=== PATIENT | male | born 1930 | race Caucasian/White ===

== ENCOUNTER 2016-05-31 13:58 | Emergency (ER) | payer MEDICARE ==
[~2016-05-31] VITALS: Ht 172.7 cm; Wt 85.0 kg
[~2016-05-31 13:58] MED LIST: AMLODIPINE5 MG PO; AMOXICILLIN500 MG PO; ASPIRIN81 MG PO; BL ASPIRIN325 MG PO; CARVEDILOL25 MG PO; CEFTIN250 MG PO; CEFTIN500 MG PO; CEPHALEXIN500 MG PO; CIPRO500 MG OR; CLOPIDOGREL75 MG PO; CONSTULOSE OR; CORDARONE/200 MG/TAB PO; COUMADIN3 MG PO; COUMADIN4 MG PO; CRESTOR10 MG OR; CRESTOR5 MG OR; CRESTOR5 MG PO; CYCLOBENZAPR10 MG PO; DEBROX6.5 % AU; DIDN'T BRING MEDS; DILTIAZEM CD120 MG PO; DIVALPROEX SOD250 MG PO; DIVALPROEX250 M1 OR; FLEET ENEMA RE; FLOMAX0.4 M1 OR; ISORDIL40 MG OR; ISOSORB DIN30 MG OR; KAYEXALATE15 GM/60 M PO; KEFLEX500 M1 PO; KEFLEX500 MG PO; LASIX 20 MG TAB20 MG PO; LEVOTHYROXIN100 MC1 PO; LEVOTHYROXIN125 MCG PO; LEVOTHYROXIN25 MC1 PO; LISINOPRIL10 MG PO; LISINOPRIL20 MG PO; LOPRESSOR 550 MG/TAB PO; LOTREL1 CA4 OR; MAG CITRATE PO; METO50TA52 PO; METOPROL TAR100 MG PO; METOPROL TAR25 MG PO; METOPROLOL100 M1 OR; NITROGLYCER0.4 MG SL; PENTOXIFYLLI400 MG PO; PLAVIX75 MG OR; PLAVIX75 MG PO; PLETAL100 MG OR; PREDNISONE10 MG PO; PROZAC10 MG OR; RESTORIL15 MG PO; RESTORIL30 MG OR; ROCEPHIN 1 GM1 GM IM; SANTYL250 MG/GM EX; SODIUM BICARBI650 MG PO; SYNTHROID125 MCG PO; TEMAZEPAM15 MG PO; TOPROL XL100 MG OR; TRAMADOL HCL50 MG PO; TRAZODONE50 MG PO; TRENTAL400 MG OR; ULTRAM50 M1 PO; WARFARIN2.5 MG PO; WARFARIN5 MG PO; [UNRECOGNIZED DRUG - OTHER] TOP
[2016-05-31 15:41] LABS: HEMATOCRIT 43.6 % (39.0-50.0); HEMOGLOBIN 13.8 g/dl (14.0-18.0); IMMATURE GRANULOCYTES 1.6 % (0.0-1.0); MEAN CELL VOLUME 80.7 fL CALC (80.0-100.0); MEAN CORPUSCULAR HGB 25.6 pG CALC (26.0-32.0); MEAN CORPUSCULAR HGB CONC 31.7 g/L CALC (32.0-36.0); NEUT# 11.12 thou/uL (1.82-7.42); RED BLOOD COUNT 5.4 mill/uL (4.70-6.10); RED CELL DISTRI WIDTH 15.5 % (11.5-15.5)
[2016-05-31 16:01] LABS: ALBUMIN 4.5 g/dL (3.2-5.0); ALKALINE PHOSPHATASE 80 u/l (38-126); ANION GAP 21 (6-22 (CALC)); BILIRUBIN, TOTAL 0.4 mg/dL (0.0-1.4); BUN 42 mg/dL (8-23); BUN/CREATININE RATIO 13 (12-20 (CALC)); CALCIUM 8.8 mg/dL (8.4-10.2); CARBON DIOXIDE 20 mmol/l (22-30); CHLORIDE 108 mmol/l (95-108); CREATININE 3.3 mg/dL (0.7-1.3); GFR 18 ML/MIN (>=60 (CALC)); GFR FOR AFR.AMER. 22 ML/MIN (>=60 (CALC)); GLUCOSE 80 mg/dL (82-115); POTASSIUM 4.7 mmol/l (3.5-5.1); SGOT/AST 16 u/l (19-48); SGPT/ALT 19 u/l (11-66); SODIUM 143 mmol/l (137-146); TOTAL PROTEIN 8.3 g/dL (6.3-8.2)
[2016-05-31 16:13] LABS: MYOGLOBIN 74 ng/mL (0 - 121)
[2016-05-31 17:20] VITALS: BP 195/87
[2016-05-31] MEDS ORDERED: MEDDOSEPAK PO (17:23)
[2016-05-31] MEDS ORDERED: ZITHROMAX250 MG PO (17:23)
== END 2016-05-31 17:28 | disposition left against medical advice (07) ==
LOC: ED 13:58
PROVIDERS: Emergency Medicine
DX: S09.90XA Unspecified injury of head, initial encounter (principal); Z91.19 Patient's noncompliance with other medical treatment and regimen; S16.1XXA Strain of muscle, fascia and tendon at neck level, initial encounter; R09.02 Hypoxemia; J44.9 Chronic obstructive pulmonary disease, unspecified; N28.9 Disorder of kidney and ureter, unspecified; I10 Essential (primary) hypertension; Z85.89 Personal history of malignant neoplasm of other organs and systems; F17.210 Nicotine dependence, cigarettes, uncomplicated; V49.59XA Passenger injured in collision with other motor vehicles in traffic accident, initial encounter; Y92.410 Unspecified street and highway as the place of occurrence of the external cause

== ENCOUNTER 2016-08-23 11:47 | Inpatient (IN) | payer MEDICARE ==
[2016-08-23] VITALS (10 sets, daily range): BP systolic 116–149; BP diastolic 65–90
[~2016-08-23] VITALS: Ht 172.7 cm; Wt 73.0 kg
[~2016-08-23 11:47] MED LIST changes: +MEDDOSEPAK PO; +ZITHROMAX250 MG PO
[2016-08-23 12:32] LABS: HEMATOCRIT 46.9 % (39.0-50.0); MEAN CELL VOLUME 80.2 fL CALC (80.0-100.0); MEAN CORPUSCULAR HGB 25.6 pG CALC (26.0-32.0); NEUT# 12.07 thou/uL (1.82-7.42); RED BLOOD COUNT 5.85 mill/uL (4.70-6.10); RED CELL DISTRI WIDTH 16.1 % (11.5-15.5)
[2016-08-23 12:45] LABS: ALBUMIN 4.6 g/dL (3.2-5.0); ALKALINE PHOSPHATASE 77 u/l (38-126); ANION GAP 20 (6-22 (CALC)); BILIRUBIN, TOTAL 0.6 mg/dL (0.0-1.4); BUN 44 mg/dL (8-23); BUN/CREATININE RATIO 15 (12-20 (CALC)); CARBON DIOXIDE 17 mmol/l (22-30); CHLORIDE 114 mmol/l (95-108); GFR 20 ML/MIN (>=60 (CALC)); GFR FOR AFR.AMER. 24 ML/MIN (>=60 (CALC)); GLUCOSE 86 mg/dL (82-115); POTASSIUM 4.6 mmol/l (3.5-5.1); SGOT/AST 24 u/l (19-48); SGPT/ALT 28 u/l (11-66); SODIUM 146 mmol/l (137-146); TOTAL PROTEIN 8.3 g/dL (6.3-8.2)
[2016-08-23 12:57] LABS: MYOGLOBIN 77 ng/mL (0 - 121)
[2016-08-23 14:15] LABS: URINE BILIRUBIN - DIPSTICK NEGATIVE (NEGATIVE); URINE BLOOD DIPSTICK TRACE-LYSED (NEGATIVE); URINE CLARITY CLEAR; URINE COLOR YELLOW; URINE GLUCOSE - DIPSTICK NEGATIVE (NEGATIVE); URINE KETONE NEGATIVE (NEGATIVE); URINE LEUK ESTERASE NEGATIVE (NEGATIVE); URINE NITRITE - DIPSTICK NEGATIVE (Negative); URINE PH 5.5 (4.5-8.0); URINE PROTEIN - DIPSTICK 30 mg/dL (NEG-TRACE); URINE SPECIFIC GRAVITY >=1.030; URINE UROBILINOGEN - DIPSTICK 0.2 E.U./dL (0.2)
[2016-08-23 14:24] LABS: URINE RBC 0-2 RBC/hpf (0-5); URINE WBC 0-2 WBC/hpf (0-5)
[2016-08-24] VITALS (18 sets, daily range): BP systolic 100–146; BP diastolic 61–97
[2016-08-24 08:00] LABS: HEMATOCRIT 46.4 % (39.0-50.0); HEMOGLOBIN 14.4 g/dl (14.0-18.0); IMMATURE GRANULOCYTES 0.7 % (0.0-1.0); MEAN CELL VOLUME 82.6 fL CALC (80.0-100.0); MEAN CORPUSCULAR HGB 25.6 pG CALC (26.0-32.0); NEUT# 8.29 thou/uL (1.82-7.42); RED BLOOD COUNT 5.62 mill/uL (4.70-6.10); RED CELL DISTRI WIDTH 16.3 % (11.5-15.5)
[2016-08-24 09:20] LABS: CALCIUM 8.6 mg/dL (8.4-10.2); CHOLESTEROL HDL RATIO 4.9 (<4.4 (CALC)); CREATININE 2.8 mg/dL (0.7-1.3); POTASSIUM 4.7 mmol/l (3.5-5.1)
[2016-08-25 00:09] VITALS: BP 110/58
[2016-08-25 04:05] VITALS: BP 138/89
[2016-08-25 05:00] LABS: HEMATOCRIT 40.6 % (39.0-50.0); IMMATURE GRANULOCYTES 0.8 % (0.0-1.0); MEAN CELL VOLUME 81.2 fL CALC (80.0-100.0); NEUT# 8.81 thou/uL (1.82-7.42); RED CELL DISTRI WIDTH 15.8 % (11.5-15.5)
[2016-08-25 05:06] LABS: ALBUMIN 3.6 g/dL (3.2-5.0); CALCIUM 7.9 mg/dL (8.4-10.2); CREATININE 2.7 mg/dL (0.7-1.3); POTASSIUM 4.4 mmol/l (3.5-5.1)
[2016-08-25 07:19] VITALS: BP 109/79
[2016-08-25 07:30] VITALS: BP 109/79
[2016-08-25] MEDS ORDERED: SODIUM BICARBI650 MG PO (07:57)
[2016-08-25] MEDS ORDERED: PREDNISONE10 MG PO (07:57)
[2016-08-25] MEDS ORDERED: CARDIZEM CD240 MG PO (07:57)
[2016-08-25] MEDS ORDERED: GUAIFENESI100 MG/51 PO (07:57)
[2016-08-25] MEDS ORDERED: PEPCID20 MG PO (07:57)
[2016-08-25] MEDS ORDERED: PRAVASTATIN SOD20 MG PO (07:57)
[2016-08-25] MEDS ORDERED: IPRATROPIU0.5 MG/3 M IN (07:57)
== END 2016-08-25 09:10 | disposition home or self-care (01) | DRG 309 ==
LOC: ENPENDDIS → ED 11:47 → ED-I 13:25 → ED 14:04 → ICU 14:05
PROVIDERS: Emergency Medicine; Internal Medicine Nephrology; ADMIT Internal Medicine; ATTEND Internal Medicine
DX: I48.0 Paroxysmal atrial fibrillation (principal); N18.4 Chronic kidney disease, stage 4 (severe); E87.2 Acidosis; E87.0 Hyperosmolality and hypernatremia; Z93.0 Tracheostomy status; J44.1 Chronic obstructive pulmonary disease with (acute) exacerbation; I13.10 Hypertensive heart and chronic kidney disease without heart failure, with stage 1 through stage 4 chronic kidney disease, or unspecified chronic kidney disease; I25.10 Atherosclerotic heart disease of native coronary artery without angina pectoris; E89.0 Postprocedural hypothyroidism; E78.5 Hyperlipidemia, unspecified; F17.210 Nicotine dependence, cigarettes, uncomplicated; I70.213 Atherosclerosis of native arteries of extremities with intermittent claudication, bilateral legs; I71.4 Abdominal aortic aneurysm, without rupture; F41.9 Anxiety disorder, unspecified; G47.00 Insomnia, unspecified; H91.93 Unspecified hearing loss, bilateral; Z85.21 Personal history of malignant neoplasm of larynx; Z86.73 Personal history of transient ischemic attack (TIA), and cerebral infarction without residual deficits; Z90.02 Acquired absence of larynx; Z99.81 Dependence on supplemental oxygen; Z91.14 Patient's other noncompliance with medication regimen; Z79.82 Long term (current) use of aspirin; Z95.5 Presence of coronary angioplasty implant and graft; Z91.81 History of falling
CPT/HCPCS: J1650

== ENCOUNTER 2016-11-11 12:06 | Emergency (ER) | payer MEDICARE ==
[~2016-11-11] VITALS: Ht 172.7 cm; Wt 75.0 kg
[~2016-11-11 12:06] MED LIST changes: +CARDIZEM CD240 MG PO; +GUAIFENESI100 MG/51 PO; +IPRATROPIU0.5 MG/3 M IN; +PEPCID20 MG PO; +PRAVASTATIN SOD20 MG PO
[2016-11-11 12:53] LABS: HEMATOCRIT 41.6 % (39.0-50.0); HEMOGLOBIN 13.1 g/dl (14.0-18.0); IMMATURE GRANULOCYTES 0.9 % (0.0-1.0); MEAN CELL VOLUME 79.1 fL CALC (80.0-100.0); MEAN CORPUSCULAR HGB 24.9 pG CALC (26.0-32.0); MEAN CORPUSCULAR HGB CONC 31.5 g/L CALC (32.0-36.0); NEUT# 9.03 thou/uL (1.82-7.42); RED BLOOD COUNT 5.26 mill/uL (4.70-6.10); RED CELL DISTRI WIDTH 15.9 % (11.5-15.5)
[2016-11-11 13:13] LABS: CALCIUM 8.8 mg/dL (8.4-10.2); CREATININE 4.1 mg/dL (0.7-1.3); POTASSIUM 4.6 mmol/l (3.5-5.1)
[2016-11-11 15:40] VITALS: BP 130/71
== END 2016-11-11 16:08 | disposition home or self-care (01) ==
LOC: ED 12:06
PROVIDERS: Family Medicine
DX: M25.561 Pain in right knee (principal); J44.9 Chronic obstructive pulmonary disease, unspecified; I25.10 Atherosclerotic heart disease of native coronary artery without angina pectoris; I10 Essential (primary) hypertension; E03.9 Hypothyroidism, unspecified; F17.210 Nicotine dependence, cigarettes, uncomplicated; W19.XXXA Unspecified fall, initial encounter; Z93.0 Tracheostomy status; Z86.73 Personal history of transient ischemic attack (TIA), and cerebral infarction without residual deficits; Z85.819 Personal history of malignant neoplasm of unspecified site of lip, oral cavity, and pharynx

== ENCOUNTER 2016-11-24 11:58 | Emergency (ER) | payer MEDICARE ==
[~2016-11-24] VITALS: Ht 172.7 cm; Wt 70.0 kg
[2016-11-24 12:57] LABS: HEMATOCRIT 40.5 % (39.0-50.0); HEMOGLOBIN 13.1 g/dl (14.0-18.0); IMMATURE GRANULOCYTES 0.6 % (0.0-1.0); MEAN CORPUSCULAR HGB 25.9 pG CALC (26.0-32.0); MEAN CORPUSCULAR HGB CONC 32.3 g/L CALC (32.0-36.0); NEUT# 9.88 thou/uL (1.82-7.42); RED BLOOD COUNT 5.06 mill/uL (4.70-6.10); RED CELL DISTRI WIDTH 18.1 % (11.5-15.5)
[2016-11-24 12:59] LABS: ALBUMIN 4.1 g/dL (3.2-5.0); BILIRUBIN, TOTAL 0.6 mg/dL (0.0-1.4); CALCIUM 8.5 mg/dL (8.4-10.2); CREATININE 4.6 mg/dL (0.7-1.3); POTASSIUM 4.2 mmol/l (3.5-5.1); TOTAL PROTEIN 7.5 g/dL (6.3-8.2)
[2016-11-24 13:50] VITALS: BP 153/69
[2016-11-24 22:06] LABS: URINE BILIRUBIN - DIPSTICK NEGATIVE (NEGATIVE); URINE BLOOD DIPSTICK NEGATIVE (NEGATIVE); URINE CLARITY CLEAR; URINE COLOR YELLOW; URINE GLUCOSE - DIPSTICK NEGATIVE (NEGATIVE); URINE KETONE 15 mg/dL (NEGATIVE); URINE LEUK ESTERASE NEGATIVE (NEGATIVE); URINE NITRITE - DIPSTICK NEGATIVE (Negative); URINE PH 5.5 (4.5-8.0); URINE PROTEIN - DIPSTICK TRACE mg/dL (NEG-TRACE); URINE UROBILINOGEN - DIPSTICK 0.2 E.U./dL (0.2)
== END 2016-11-24 17:55 | disposition short-term general hospital (02) ==
LOC: ED 11:58
PROVIDERS: Emergency Medicine
DX: N17.9 Acute kidney failure, unspecified (principal); E87.2 Acidosis; J44.9 Chronic obstructive pulmonary disease, unspecified; I25.10 Atherosclerotic heart disease of native coronary artery without angina pectoris; E03.9 Hypothyroidism, unspecified; I12.9 Hypertensive chronic kidney disease with stage 1 through stage 4 chronic kidney disease, or unspecified chronic kidney disease; N18.9 Chronic kidney disease, unspecified; Z86.73 Personal history of transient ischemic attack (TIA), and cerebral infarction without residual deficits; Z85.819 Personal history of malignant neoplasm of unspecified site of lip, oral cavity, and pharynx; F17.210 Nicotine dependence, cigarettes, uncomplicated; Z59.4 Lack of adequate food; R94.31 Abnormal electrocardiogram [ECG] [EKG]